=== PATIENT | male | born 1990 | race Two or more races ===

== ENCOUNTER 2018-07-16 10:32 | Emergency (ER) | payer MEDICAID ==
[~2018-07-16] VITALS: Ht 167.6 cm; Wt 117.9 kg
[2018-07-16 11:30] LABS: Basophils # (auto) 0 uL; Basophils % (auto) 0.5 % (0.0-2.0); Eosinophils # (auto) 0.2 uL; Eosinophils % (auto) 2.9 % (0.0-7.0); Hematocrit 47.7 % (41.0-53.0); Hemoglobin 15.8 g/dL (13.5-17.5); Lymphocytes # (auto) 2.7 uL; Lymphocytes % (auto) 38.6 % (10.0-50.0); Mean Corpuscular Hemoglobin 30.2 pg (28.0-32.0); Mean Corpuscular Hgb Conc. 33.2 g/dL (32.0-36.0); Mean Corpuscular Volume 91.1 fL (80.0-100.0); Monocytes # (auto) 0.5 uL; Monocytes % (auto) 7.4 % (0.0-12.0); Neutrophils # (auto) 3.6 uL; Neutrophils % (auto) 50.6 % (37.0-80.0); Nucleated Red Blood Cells % 0.1 %; Platelet Count (auto) 268 10^3/uL (140-450); Red Blood Cells 5.24 10^6/uL (4.5-5.90); Red Cell Distribution Width 13.8 % (11.8-14.3); White Blood Cell 7.1 10^3/uL (4.4-10.8)
[2018-07-16 11:54] LABS: Salicylate < 1.7 mg/dL (2.8-20.0)
[2018-07-16 11:57] LABS: Blood Urea Nitrogen 12 mg/dL (7-18); Chloride 104 mmol/L (98-107); Sodium 139 mmol/L (136-145)
[2018-07-16 12:06] LABS: Alanine Aminotransferase 59 U/L (16-61); Albumin 3.6 g/dL (3.4-5.0); Alkaline Phosphatase 76 U/L (45-117); Anion Gap 8 (5-15); Aspartate Aminotransferase 33 U/L (15-37); BUN/Creatinine Ratio 10.6; Bilirubin, Total 0.4 mg/dL (0.2-1.0); Blood Alcohol < 3.0 mg/dL (0-5); Calcium 8.7 mg/dL (8.5-10.1); Carbon Dioxide 27 mmol/L (21-32); GFR African American 99 mL/min; GFR Non-African American 82 mL/min; Glucose 159 mg/dL (74-106); Total Protein 7.2 g/dL (6.4-8.2)
[2018-07-16 12:22] LABS: Acetaminophen < 2.0 ug/mL (10-30)
[2018-07-17] MEDS ORDERED: CITALOPRAM HYDROBR 20 MG TAB PO ONE
[2018-07-17] MEDS ORDERED: LORazepam 0.5 MG TAB PO PRN
[2018-07-17 21:27] VITALS: BP 118/79
== END 2018-07-16 21:51 | disposition short-term general hospital (02) ==
LOC: ER 10:32 → EDBD 10:32 → ER 21:51
DX: R45.851 Suicidal ideations (principal); R07.89 Other chest pain; F32.9 Major depressive disorder, single episode, unspecified; F12.10 Cannabis abuse, uncomplicated
CPT/HCPCS: 36415; 71045; 80053; 80320; 80329; 84484; 85025; 93005; 94761

== ENCOUNTER 2023-07-22 00:13 | Inpatient (IN) | payer BC, MEDICAID ==
[~2023-07-22] VITALS: Ht 167.6 cm; Wt 164.0 kg
[2023-07-22 02:41] LABS: Lymphocytes # (auto) 2.6 10 ^3/uL (0.4-5.4); Monocytes # (auto) 0.4 10 ^3/uL (0-1.3); Neutrophils # (auto) 3.3 10 ^3/uL (1.6-8.6)
[2023-07-22 02:48] LABS: Chloride 108 mmol/L (98-107); Potassium 3.9 mmol/L (3.5-5.1); Sodium 139 mmol/L (136-145)
[2023-07-22 02:49] LABS: Anion Gap 6 (5-15); Carbon Dioxide 25 mmol/L (20-30)
[2023-07-22 02:52] LABS: Basophils # (auto) 0.1 10 ^3/uL (0-0.2); Basophils % (auto) 0.8 % (0.0-2.0); Eosinophils # (auto) 0.4 10 ^3/uL (0-0.8); Eosinophils % (auto) 5.3 % (0.0-7.0); Hematocrit 35.7 % (41.0-53.0); Hemoglobin 11.8 g/dL (13.5-17.5); Lymphocytes % (auto) 39.2 % (10.0-50.0); Mean Corpuscular Hemoglobin 29.8 pg (28.0-32.0); Mean Corpuscular Volume 90.3 fL (80.0-100.0); Monocytes % (auto) 6.1 % (0.0-12.0); Neutrophils % (auto) 48.6 % (37.0-80.0); Nucleated Red Blood Cells % 0.2 %; Red Blood Cells 3.95 10^6/uL (4.5-5.90); Red Cell Distribution Width 13.6 % (11.8-14.3); White Blood Cell 6.8 10^3/uL (4.4-10.8)
[2023-07-22 02:54] LABS: Blood Urea Nitrogen 9 mg/dL (9-23); Glucose 130 mg/dL (74-106)
[2023-07-22] MEDS: HYDROmorphone HCL 2 MG/ML VL/or syr IV ONE (03:30)
[2023-07-22 04:06] LABS: Urine Bacteria FEW /hpf (None Seen); Urine Blood Negative /uL (Negative); Urine Clarity Clear (Clear); Urine Color Yellow (Yellow); Urine Mucus FEW (None Seen); Urine Protein, UAD TRACE (Negative); Urine Specific Gravity 1.038 (1.001-1.035); Urine Urobilinogen 4 mg/dL (Negative); Urine WBC 1 /hpf (0 - 3)
[2023-07-22] MEDS: HYDROmorphone HCL 2 MG/ML VL/or syr IM ONE (04:09)
[2023-07-22] MEDS ORDERED: DOCUSATE SOD 100 MG CAP PO PRN (04:45)
[2023-07-22] MEDS ORDERED: ACETAMINOPHEN 325 MG TAB PO PRN (04:45)
[2023-07-22 05:40] LABS: Basophils # (auto) 0 10 ^3/uL (0-0.2); Basophils % (auto) 0.6 % (0.0-2.0); Eosinophils # (auto) 0.3 10 ^3/uL (0-0.8); Eosinophils % (auto) 3.7 % (0.0-7.0); Hematocrit 35.9 % (41.0-53.0); Hemoglobin 11.7 g/dL (13.5-17.5); Lymphocytes # (auto) 3.1 10 ^3/uL (0.4-5.4); Mean Corpuscular Hemoglobin 29.7 pg (28.0-32.0); Mean Corpuscular Hgb Conc. 32.6 g/dL (32.0-36.0); Monocytes # (auto) 0.5 10 ^3/uL (0-1.3); Monocytes % (auto) 6.8 % (0.0-12.0); Neutrophils # (auto) 3.2 10 ^3/uL (1.6-8.6); Neutrophils % (auto) 44.9 % (37.0-80.0); Nucleated Red Blood Cells % 0.2 %; Red Blood Cells 3.94 10^6/uL (4.5-5.90); Red Cell Distribution Width 13.7 % (11.8-14.3); White Blood Cell 7.1 10^3/uL (4.4-10.8)
[2023-07-22] MEDS ORDERED: PIPERACILLIN-TAZOB 3.375GM 100 ML IV SCH (06:00)
[2023-07-22 06:02] LABS: Alanine Aminotransferase 60 U/L (7-40); Albumin 3.8 g/dL (3.2-4.8); Alkaline Phosphatase 63 U/L (46-116); Anion Gap 8 (5-15); Aspartate Aminotransferase 45 U/L (13-40); Blood Urea Nitrogen 8 mg/dL (9-23); Calcium 8.8 mg/dL (8.7-10.4); Carbon Dioxide 24 mmol/L (20-30); Chloride 106 mmol/L (98-107); Glucose 135 mg/dL (74-106); Potassium 3.8 mmol/L (3.5-5.1); Sodium 138 mmol/L (136-145)
[2023-07-22 06:03] LABS: Bilirubin, Total 0.8 mg/dL (0.2-1.0); Total Protein 6.2 g/dL (5.7-8.2)
[2023-07-22 06:16] VITALS: PULSE 90; RESP 22; O2SAT 94
[2023-07-22] MEDS: SODIUM CHLORIDE 0.9% 1,000 ML IV SCH (06:32)
[2023-07-22] MEDS: PIPERACILLIN-TAZO 4.5GM 100 ML IV ONE (06:33)
[2023-07-22] MEDS ORDERED: MORPHINE SULFATE INJ 2 MG/ml SYRG IV PRN (07:00)
[2023-07-22] MEDS ORDERED: NITROGLYCERIN 0.4 MG SL TAB SL PRN (07:00)
[2023-07-22 08:00] VITALS: PULSE 90; RESP 18; O2SAT 94
[2023-07-22] MEDS: ONDANSETRON HCL 4 MG/2 ML VIAL IV PRN (09:58)
[2023-07-22] MEDS: HYDROmorphone HCL 2 MG/ML VL/or syr IV PRN (09:59)
[2023-07-22] MEDS: PIPERACILLIN-TAZOB 3.375GM 100 ML IV SCH (14:24)
[2023-07-22] MEDS: HYDROcodone-ACET 5/325MG TAB PO PRN (15:17)
[2023-07-22 19:30] VITALS: O2SAT 94
[2023-07-22 23:05] VITALS: BP 150/53; PULSE 80; RESP 19; TEMP 98.2; O2SAT 100
[2023-07-22 23:51] VITALS: PULSE 91; RESP 18; O2SAT 100
[2023-07-23] VITALS (7 sets, daily range): BP systolic 151–163; BP diastolic 63–97; PULSE 75–91; RESP 16–21; TEMP 98–98.6; O2SAT 95–100
[2023-07-23] MEDS ORDERED: GABA-1250 PO (02:16)
[2023-07-23] MEDS ORDERED: OXY5T PO (02:16)
[2023-07-23] MEDS ORDERED: ARIP1TAB59 PO (02:16)
[2023-07-23] MEDS ORDERED: ESCI1TAB36 PO (02:16)
[2023-07-23] MEDS ORDERED: PRA1C PO (02:16)
[2023-07-23] MEDS ORDERED: METH-1182 PO (02:16)
[2023-07-23] MEDS: hydrALAZINE HCL 20 MG/ML VL IV PRN (05:23)
[2023-07-23] MEDS ORDERED: VANCOMYCIN PER PHARMACY 0 MG IV SCH (12:15)
[2023-07-23] MEDS: VANCOMYCIN 1GM/200ML 200 ML IV ONE (17:06)
[2023-07-23] MEDS: FUROSEMIDE 100 MG/10ML VIAL IV ONE (17:07)
[2023-07-23 18:31] LABS: Basophils # (auto) 0.1 10 ^3/uL (0-0.2); Basophils % (auto) 0.9 % (0.0-2.0); Eosinophils # (auto) 0.2 10 ^3/uL (0-0.8); Eosinophils % (auto) 1.9 % (0.0-7.0); Hematocrit 36.4 % (41.0-53.0); Hemoglobin 11.9 g/dL (13.5-17.5); Lymphocytes # (auto) 1.7 10 ^3/uL (0.4-5.4); Lymphocytes % (auto) 21.5 % (10.0-50.0); Mean Corpuscular Hemoglobin 29.6 pg (28.0-32.0); Mean Corpuscular Hgb Conc. 32.8 g/dL (32.0-36.0); Mean Corpuscular Volume 90.2 fL (80.0-100.0); Monocytes # (auto) 0.4 10 ^3/uL (0-1.3); Monocytes % (auto) 5.4 % (0.0-12.0); Neutrophils # (auto) 5.5 10 ^3/uL (1.6-8.6); Neutrophils % (auto) 70.3 % (37.0-80.0); Nucleated Red Blood Cells % 0.2 %; Red Blood Cells 4.04 10^6/uL (4.5-5.90); Red Cell Distribution Width 14.2 % (11.8-14.3); White Blood Cell 7.8 10^3/uL (4.4-10.8)
[2023-07-23 18:37] LABS: Alanine Aminotransferase 74 U/L (7-40); Albumin 4.2 g/dL (3.2-4.8); Alkaline Phosphatase 68 U/L (46-116); Anion Gap 4 (5-15); Aspartate Aminotransferase 43 U/L (13-40); BUN/Creatinine Ratio 7.3 (10.0-20.0); Bilirubin, Total 0.7 mg/dL (0.2-1.0); Blood Urea Nitrogen 6 mg/dL (9-23); Calcium 9.5 mg/dL (8.5-10.1); Carbon Dioxide 29 mmol/L (20-30); Chloride 105 mmol/L (98-107); Glucose 116 mg/dL (74-106); Potassium 3.9 mmol/L (3.5-5.1); Sodium 138 mmol/L (136-145); Total Protein 6.7 g/dL (5.7-8.2)
[2023-07-23] MEDS: VANCOMYCIN 1GM/200ML 200 ML IV SCH (21:00)
[2023-07-23] MEDS: GABAPENTIN 300 MG CAP PO SCH (21:43)
[2023-07-23] MEDS: METHOCARBAMOL 500 MG TAB PO PRN (22:54)
[2023-07-24] VITALS (8 sets, daily range): BP systolic 123–150; BP diastolic 53–77; PULSE 63–101; RESP 16–19; TEMP 97.6–98.7; O2SAT 96–100
[2023-07-24] MEDS: CITALOPRAM HYDROBR 20 MG TAB PO SCH (08:53)
[2023-07-24] MEDS: ARIPIPRAZOLE 5 MG PO SCH (10:00)
[2023-07-24] MEDS: FUROSEMIDE 100 MG/10ML VIAL IV SCH (11:33)
[2023-07-25 01:00] VITALS: BP 137/65; PULSE 72; RESP 19; TEMP 97.9; O2SAT 98
[2023-07-25 05:00] VITALS: BP 134/61; PULSE 78; RESP 16; TEMP 97.3; O2SAT 98
[2023-07-25 07:30] VITALS: PULSE 78; O2SAT 95
[2023-07-25 09:00] VITALS: BP 156/81; PULSE 94; RESP 20; TEMP 98; O2SAT 98
[2023-07-25] MEDS ORDERED: BACDST PO (12:02)
[2023-07-25] MEDS ORDERED: AUG875T PO (12:02)
[2023-07-25 13:00] VITALS: BP 111/63; PULSE 85; RESP 20; TEMP 98.3; O2SAT 92
[2023-07-25] MEDS ORDERED: oxyCODONE HCL 5MG TAB PO PRN (13:45)
[2023-07-25] MEDS ORDERED: ACETAMINOPHEN 325 MG TAB PO PRN (13:45)
[2023-07-25 14:04] VITALS: BP 111/63; PULSE 85; RESP 20; TEMP 98.5; O2SAT 92
== END 2023-07-25 15:11 | disposition home or self-care (01) | DRG 603 ==
LOC: ER 00:13 → OVERFLOW 06:52 → TELE-WESTW 23:05
PROVIDERS: ADMIT Nurse Practitioner Family; ATTEND Internal Medicine
DX: L03.113 Cellulitis of right upper limb (principal); L03.311 Cellulitis of abdominal wall; L03.313 Cellulitis of chest wall; Z68.43 Body mass index [BMI] 50.0-59.9, adult; L03.114 Cellulitis of left upper limb; E66.01 Morbid (severe) obesity due to excess calories; E87.70 Fluid overload, unspecified; I10 Essential (primary) hypertension; F32.A Depression, unspecified; F43.10 Post-traumatic stress disorder, unspecified; E11.9 Type 2 diabetes mellitus without complications; Z90.49 Acquired absence of other specified parts of digestive tract; Z88.8 Allergy status to other drugs, medicaments and biological substances; Z91.040 Latex allergy status
CPT/HCPCS: 36415; 80048; 80053; 80202; 81001; 83605; 85025; 87040; 87081; 93005; 96365; 96372; 96375; G0378; J2405; J2543